=== PATIENT | female | born 1950 | race Two or more races ===

== ENCOUNTER 2020-04-02 20:32 | Emergency (ER) | payer MEDICAID ==
[~2020-04-02] VITALS: Ht 162.6 cm; Wt 99.8 kg
[2020-04-02] MEDS ORDERED: AMLODIPINE BES2.5 MG ORAL (20:38)
[2020-04-02] MEDS ORDERED: LOSARTAN POTASS25 MG ORAL (20:38)
[2020-04-02 20:40] VITALS: BP 145/71
--- NOTE | 2020-04-02 20:40 | NUR ---
ED Nurse Note: Pt is aaox4, speaking in full sentences with no acute distress.
--- NOTE | 2020-04-02 20:40 | NUR ---
ED Nurse Note: Pt brought into ED by LEONARD RA 26 from home for c/o SOB and HTN x 1 day. Per LEONARD, pt began feeling short of breath and her chest felt heavy. Pt was concerned with high blood pressure which EMS notes was 178/77 on scene. Pt states she took BP medication tonight. Pt connected to propeller tester, oxygen saturation is 100% on RA. Pt is breathing normal and unlabored. Pt denies cough, fever or any pain. Will cont. to monitor.
--- NOTE | 2020-04-02 20:44 | Emergency Room Report ---
History of Present Illness General Chief Complaint: Hypertension Source: Patient Present Illness HPI 69-year-old female history of hypertension presents with progressive shortness of breath over the past 24 hours, she also checked her blood pressure was elevated, no chest pain no dyspnea on exertion no known aggravating or alleviating factors severity is mild, constant no fevers chills cough congestion , abdominal pain dysuria, no diarrhea patient presents for evaluation and treatment. She also denies any weight gain or changes in her weight. No history of heart failure Allergies: Coded Allergies: No Known Allergies (Unverified , 04/02/20) COVID-19 Screening Contact w/high risk pt: No Recent Travel to affected area: No Experienced COVID-19 symptoms?: No COVID-19 Testing performed CHOKE SETTER: No Patient History Past Medical History: see triage record Reviewed Nursing Documentation: PMH: Agreed; PSxH: Agreed Nursing Documentation-PMH Past Medical History: No History, Except For Hx Hypertension: Yes Review of Systems All Other Systems: negative except mentioned in HPI Physical Exam Vital Signs Date Time Temp Pulse Resp B/P (MAP) Pulse Ox O2 Delivery O2 Flow Rate FiO2 04/02/20 20:34 97.0 99 16 178/77 (110) 97 Room Air Sp02 EP Interpretation: reviewed, normal General Appearance: well appearing, no apparent distress, alert Head: normocephalic, atraumatic Eyes: bilateral eye PERRL, bilateral eye EOMI ENT: uvula midline, moist mucus membranes Neck: supple, thyroid normal, supple/symm/no masses Respiratory: lungs clear, no respiratory distress, no retraction, no accessory muscle use Cardiovascular #1: normal peripheral pulses, regular rate, rhythm, no edema, no gallop, no murmur Gastrointestinal: non tender, soft, no guarding, no rebound Musculoskeletal: normal inspection Neurologic: alert, oriented x3 Psychiatric: mood/affect normal Skin: no rash, warm/dry Medical Decision Making Diagnostic Impression: Primary Impression: Hypertension Qualified Codes: I10 - Essential (primary) hypertension Additional Impression: Dyspnea Qualified Codes: R06.00 - Dyspnea, unspecified ER Course 69-year-old female presents with vague complaints of dyspnea, hypertension, differential diagnosis includes ACS, CHF, pulmonary edema Patient currently has no evidence of pulmonary edema no crackles on exam, no JVD , chest x-ray is negative for any pulmonary edema Troponin negative, proBNP negative, patient counseled to follow-up with PCP to get an outpatient echocardiogram and outpatient stress test. Strict return precautions were discussed Laboratory Tests Test 04/02/20 20:40 White Blood Count 9.1 K/UL (4.8-10.8) Red Blood Count 4.04 M/UL (4.20-5.40) L Hemoglobin 13.3 G/DL (12.0-16.0) Hematocrit 42.3 % (37.0-47.0) Mean Corpuscular Volume 105 FL (80-99) H Mean Corpuscular Hemoglobin 32.9 PG (27.0-31.0) H Mean Corpuscular Hemoglobin Concent 31.4 G/DL (32.0-36.0) L Red Cell Distribution Width 12.5 % (11.6-14.8) Platelet Count 299 K/UL (150-450) Mean Platelet Volume 7.1 FL (6.5-10.1) Neutrophils (%) (Auto) 52.2 % (45.0-75.0) Lymphocytes (%) (Auto) 35.4 % (20.0-45.0) Monocytes (%) (Auto) 8.7 % (1.0-10.0) Eosinophils (%) (Auto) 1.8 % (0.0-3.0) Basophils (%) (Auto) 2.0 % (0.0-2.0) Sodium Level 141 MMOL/L (136-145) Potassium Level 3.9 MMOL/L (3.5-5.1) Chloride Level 105 MMOL/L (98-107) Carbon Dioxide Level 22 MMOL/L (21-32) Anion Gap 14 mmol/L (5-15) Blood Urea Nitrogen 23 mg/dL (7-18) H Creatinine 1.4 MG/DL (0.55-1.30) H Estimated Glomerular Filtration Rate 37.2 mL/min (>60) Glucose Level 140 MG/DL (74-106) H Calcium Level 9.1 MG/DL (8.5-10.1) Total Bilirubin 0.4 MG/DL (0.2-1.0) Aspartate Amino Transferase (AST) 20 U/L (15-37) Alanine Aminotransferase (ALT) 27 U/L (12-78) Alkaline Phosphatase 102 U/L (46-116) Troponin I 0.000 ng/mL (0.000-0.056) Pro-B-Type Natriuretic Peptide 99 pg/mL (0-125) Total Protein 7.8 G/DL (6.4-8.2) Albumin 3.9 G/DL (3.4-5.0) Globulin 3.9 g/dL Albumin/Globulin Ratio 1.0 (1.0-2.7) EKG Diagnostic Results EKG Time: 20:44 EP Interpretation: NSR, rate 82, QTc 453, left axis deviation, no acute ST elevations Rhythm Strip Diag. Results Rhythm Strip Time: 20:47 EP Interpretation: yes Rate: 84 Rhythm: NSR, no PVC's, no ectopy Chest X-Ray Diagnostic Results Chest X-Ray Diagnostic Results : Chest X-Ray Ordered: Yes # of Views/Limited/Complete: 1 View Indication: Shortness of Breath EP Interpretation: Yes Interpretation: no consolidation, no effusion, no pneumothorax, no acute cardiopulmonary disease Impression: No acute disease Electronically Signed by: Aniket Price MD Last Vital Signs Date Time Temp Pulse Resp B/P (MAP) Pulse Ox O2 Delivery O2 Flow Rate FiO2 04/02/20 20:34 97.0 99 16 178/77 (110) 97 Room Air Disposition: HOME, SELF-CARE Condition: Stable Referrals: [facility] Rigoberto Riddle. [facility] Patient Instructions: Chronic Kidney Disease, [id number], Shortness of Breath , [id number] Additional Instructions: The patient was provided with discharge instructions, notified to follow-up with a primary care doctor and or specialist in the next 24-48 hours, and to return to the ED if they have worsening of their symptoms. Please note that this report is being documented using [employer] technology. This can lead to erroneous entry secondary to incorrect interpretation by the dictating instrument. PLEASE OBTAIN AN OUTPATIENT ULTRASOUND OF YOUR HEART, AND GET AN OUTPATIENT STRESS TEST TO EVALUATE YOUR HEART WITH YOUR PCP Aniket Price MD April 02, 2020 20:44
[2020-04-02 20:52] LABS: EOSINOPHILS % (AUTO) 1.8 % (0.0-3.0); HEMATOCRIT 42.3 % (37.0-47.0); HEMOGLOBIN 13.3 G/DL (12.0-16.0); LYMPHOCYTES % (AUTO) 35.4 % (20.0-45.0); MEAN CORPUSCULAR VOLUME 105 FL (80-99); MONOCYTES % (AUTO) 8.7 % (1.0-10.0); NEUTROPHILS % (AUTO) 52.2 % (45.0-75.0); PLATELET COUNT 299 K/UL (150-450); RED BLOOD COUNT 4.04 M/UL (4.20-5.40); RED CELL DISTRIBUTION WIDTH 12.5 % (11.6-14.8); WHITE BLOOD COUNT 9.1 K/UL (4.8-10.8)
[2020-04-02 21:05] LABS: ANION GAP 14 mmol/L (5-15); BLOOD UREA NITROGEN 23 mg/dL (7-18); CALCIUM 9.1 MG/DL (8.5-10.1); CARBON DIOXIDE 22 MMOL/L (21-32); CHLORIDE 105 MMOL/L (98-107); CREATININE 1.4 MG/DL (0.55-1.30); POTASSIUM 3.9 MMOL/L (3.5-5.1); SODIUM 141 MMOL/L (136-145)
[2020-04-02 21:17] LABS: ALANINE AMINOTRANSFERASE 27 U/L (12-78); ALBUMIN 3.9 G/DL (3.4-5.0); ALKALINE PHOSPHATASE 102 U/L (46-116); ASPARTATE AMINO TRANSFERASE 20 U/L (15-37); BILIRUBIN,TOTAL 0.4 MG/DL (0.2-1.0)
[2020-04-02 21:40] VITALS: BP 141/82
--- NOTE | 2020-04-02 21:40 | NUR ---
ER DISCHARGE NOTE: Patient is cleared to be discharged per ERMD, pt is aox4, on room air, with stable vital signs. pt was given dc instructions, pt was able to verbalize understanding, pt id band and iv site removed without complications. pt is able to ambulate with steady gait. pt took all belongings.
--- NOTE | 2020-04-03 14:43 | Diagnostic Imaging Report ---
Indication: Shortness of breath Technique: One view of the chest Comparison: none Findings: Body habitus limits evaluation Inspiration is suboptimal, resulting in crowding of bronchovascular markings.. The heart is upper limits normal in size. There is questionably some patchy right suprahilar infiltrate. Lungs and pleural spaces are otherwise grossly clear. Impression: Limited exam, as described Possible right suprahilar infiltrate. Correlate with clinical findings.
== END 2020-04-02 21:50 | disposition home or self-care (01) ==
LOC: EDBD 20:32 → EMR 21:30
DX: I10 Essential (primary) hypertension (principal); R06.00 Dyspnea, unspecified
CPT/HCPCS: 36415; 71045; 80053; 83880; 84484; 85025; 93005; 99283